=== PATIENT | male | born 2000 | race African-American/Black ===

== ENCOUNTER 2024-05-10 21:35 | Emergency (ER) | payer SELFPAY ==
[~2024-05-10] VITALS: Ht 182.9 cm; Wt 61.2 kg
[2024-05-10 21:40] VITALS: BP_SYST 129; PULSE 98; RESP 20; TEMP 97.4; O2SAT 98
[2024-05-10 21:59] VITALS: BP_SYST 128; PULSE 89; RESP 18; TEMP 98.4; O2SAT 96
[2024-05-10] MEDS ORDERED: DOXY100C5 PO (23:03)
[2024-05-10] MEDS: AZITHROMYCIN 250 MG TABLET PO ONE (23:13)
[2024-05-10] MEDS: cefTRIAXone 1 GM in LIDOCAINE 1%, 20 ML MDV 2.1 ML IM ONE (23:13)
== END 2024-05-10 23:15 | disposition home or self-care (01) ==
LOC: SED 21:35
DX: Z20.2 Contact with and (suspected) exposure to infections with a predominantly sexual mode of transmission (principal); Z79.899 Other long term (current) drug therapy
CPT/HCPCS: 99283; 36415; 96372; J0696; Q0144; J2001